=== PATIENT | female | born 1985 | race Two or more races ===

== ENCOUNTER 2021-06-30 06:00 | Day surgery (SDC) | payer MEDICAID, OTHER ==
[~2021-06-30] VITALS: Ht 152.4 cm; Wt 85.0 kg
[2021-06-30 07:18] LABS: BASOPHILS % 0.2 % (0.0-2.0); EOSINOPHILS % 5.5 % (0.0-5.0); HEMATOCRIT. 37.1 % (36.0-48.0); HEMOGLOBIN. 12.4 g/dL (12.0-16.0); LYMPHOCYTES % 31.6 % (20.0-50.0); MEAN CORPUSCULAR HEMOGLOBIN 27.3 pg (28.0-32.0); MEAN CORPUSCULAR VOLUME 81.3 fL (81.0-99.0); MONOCYTES % 7.8 % (2.0-8.0); NEUTROPHILS % 54.9 % (40.0-76.0); PLATELET 347 x1000/uL (130-400); RED BLOOD CELL COUNT 4.56 mill/uL (4.2-5.4); RED CELL DISTRIBUTION WIDTH 14.5 % (11.6-14.6)
[2021-06-30 07:25] LABS: CHLORIDE 106 mEq/L (98-107)
[2021-06-30 07:36] LABS: B-HCG QUANTITATIVE < 1 mIU/mL (<3)
[2021-06-30] MEDS ORDERED: SODIUM CHLORIDE 0.9% 500 ML IV ONE (09:45)
[2021-06-30] MEDS ORDERED: ACETAMINOPHEN 325MG TABLET PO ONE (09:45)
[2021-06-30 10:32] VITALS: BP 110/69
[2021-06-30] MEDS ORDERED: ONDANSETRON HCL 4MG/2ML INJ ONE (12:37)
[2021-06-30] MEDS ORDERED: FENTANYL CITRATE/PF 50MCG/ML 2ML VIAL ONE (12:37)
[2021-06-30] MEDS ORDERED: SUCCINYLCHOLINE CHLORIDE 200MG/10ML IV ONE (12:37)
[2021-06-30] MEDS ORDERED: MIDAZOLAM HCL 2 MG/2 ML VIAL ONE (12:37)
[2021-06-30] MEDS ORDERED: GLYCOPYRROLATE 0.2 MG/ML 2ML VIAL ONE (12:37)
[2021-06-30] MEDS ORDERED: METOCLOPRAMIDE HCL 10MG/2ML VIAL ONE (12:37)
[2021-06-30] MEDS ORDERED: PROPOFOL 200MG/20ML VIAL IV ONE (12:37)
[2021-06-30] MEDS ORDERED: CEFAZOLIN SODIUM 1000MG/VIAL ONE (12:38)
[2021-06-30] MEDS ORDERED: IBUP-2029 MT (13:34)
[2021-06-30] MEDS ORDERED: KETOROLAC 60MG/2ML VIAL IM NR (13:45)
[2021-06-30] MEDS ORDERED: ONDANSETRON HCL 4MG/2ML INJ IV PRN (13:45)
[2021-06-30] MEDS ORDERED: DEXT 5%/0.45% NACL KCL 20MEQ/L 1,000 ML IV SCH (14:30)
== END 2021-06-30 14:25 | disposition home or self-care (01) ==
LOC: ER 06:00 → OR 12:58 → CANBEDREQ 23:05
PROVIDERS: ATTEND Specialist
DX: N92.1 Excessive and frequent menstruation with irregular cycle (principal); N93.9 Abnormal uterine and vaginal bleeding, unspecified; Z79.899 Other long term (current) drug therapy; Z98.890 Other specified postprocedural states; Z72.89 Other problems related to lifestyle
CPT/HCPCS: 36415; 58120; 76830; 76856; 80053; 81025; 84702; 85025; 86850; 86900; 86901; 88305; 96360; 99285; J0330; J0690; J2250; J2405; J2704; J2765; J3010; J3490; J7040